=== PATIENT | male | born 1975 | race African-American/Black ===

== ENCOUNTER 2022-01-02 00:53 | Emergency (ER) | payer MEDICAID ==
[~2022-01-02] VITALS: Ht 165.1 cm; Wt 79.4 kg
[2022-01-02 01:04] VITALS: BP 113/69
--- NOTE | 2022-01-02 01:10 | NUR ---
TO LOBBY FOLLOWING TRIAGE
--- NOTE | 2022-01-02 01:44 | NUR ---
Patient taken to bed 4.
--- NOTE | 2022-01-02 01:48 | NUR ---
Dr. Alejandra examining patient.
[2022-01-02] MEDS ORDERED: MORPHINE SULFATE 4 MG/ML SYR IM ONE (01:50)
[2022-01-02] MEDS ORDERED: NITROGLYCERIN 0.4 MG TAB SL ONE ×3 (01:50→01:54)
[2022-01-02] MEDS ORDERED: MORPHINE SULFATE 4 MG/ML SYR ONE (01:53)
[2022-01-02] MEDS ORDERED: ASPIRIN 325 MG TAB PO ONE (01:55)
[2022-01-02] MEDS ORDERED: MORPHINE SULFATE 4 MG/ML SYR IVP ONE (02:00)
--- NOTE | 2022-01-02 02:00 | NUR ---
46YR OLD MALE BIB SELF C/O CP/UPPER GASTRIC PAIN XTODAY. PT PRESENTED DIAPHORTIC AND HOLDING HIS CHEST. CP STARTED AT 8PM AFTER EATING DINNER. 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 EKG WAS OBTAINED AND GIVEN TO DR LY. PT DENIES SOB . CP IS A PRESSURE/HEAVYNESS FEELING. PT STATES PAIN STARTED ON WED AND RETURNED LAST NIGHT BUT PAIN WAS WORSE. DR LY AT BEDSIDE. NKDA NO HX
--- NOTE | 2022-01-02 02:10 | NUR ---
Spoke with Saundra from [facility] [place] , according to cardiology doctor, is not STEMI. [facility] [place] is not accepting patient.
[2022-01-02] MEDS ORDERED: NACL 0.9% 1,000 ML IV ONE (02:20)
[2022-01-02 02:24] LABS: BASOPHILS # (AUTO) 0.1 K/uL (0.00-0.22); BASOPHILS % (AUTO) 0.5 % (0.0-2.0); EOSINOPHILS # (AUTO) 0.1 K/uL (0-0.4); EOSINOPHILS % (AUTO) 0.7 % (0.0-4.0); HEMATOCRIT 44.6 % (36-52); HEMOGLOBIN 14.3 g/dL (12.0-18.0); LYMPHOCYTES # (AUTO) 1.8 K/uL (2.0-11.5); LYMPHOCYTES % (AUTO) 16.2 % (20.5-51.1); MEAN CORPUSCULAR HEMOGLOBIN 27 pg (27-31); MEAN CORPUSCULAR HGB CONC 32 g/dL (33-37); MEAN CORPUSCULAR VOLUME 83.3 fL (80-94); MONOCYTES # (AUTO) 0.6 K/uL (0.8-1.0); MONOCYTES % (AUTO) 5.1 % (1.7-9.3); NEUTROPHILS # (AUTO) 8.7 K/uL (1.8-7.7); NEUTROPHILS % (AUTO) 77.5 % (42.2-75.2); PLATELET COUNT (AUTO) 280 K/uL (140-450); RED BLOOD CELL COUNT(AUTO) 5.36 MIL/uL (4.20-6.10); RED CELL DISTRIBUTION WIDTH 13.2 % (11.6-13.7); WHITE BLOOD COUNT (AUTO) 11.2 K/uL (4.8-10.8)
[2022-01-02 02:33] LABS: ALBUMIN 4.3 g/dL (3.4-5.0); CARBON DIOXIDE 24.6 mmol/L (21-32); POTASSIUM 3.6 mmol/L (3.5-5.1); TOTAL BILIRUBIN 0.3 mg/dL (0.0-1.0)
[2022-01-02 02:38] LABS: LIPASE 91 U/L (73-393)
--- NOTE | 2022-01-02 03:51 | NUR ---
Assisted patient to restroom.
--- NOTE | 2022-01-02 05:07 | NUR ---
PT IS RESTING RESP EVEN AND UNLABORED. PAIN LEVEL IS 4/10. ON BEDSIDE CARIDAC MONITOR. SIDE RAILS UP X2 BED AT LOWEST POSITION
--- NOTE | 2022-01-02 05:25 | NUR ---
Ultrasound at bedside.
--- NOTE | 2022-01-02 05:45 | NUR ---
ULTRASOUND AT BEDSIDE
--- NOTE | 2022-01-02 06:01 | NUR ---
MED RECONCILE , COVID SWAB, AND PT BELONGINGS COMPLETED
[2022-01-02] MEDS ORDERED: OMEP40EC24 PO (07:19)
--- NOTE | 2022-01-02 07:38 | NUR ---
IV removed, catheter intact and site benign. Applied folded 4x4 gauze and tape to stop bleeding.
[2022-01-02 07:40] VITALS: BP 116/69
--- NOTE | 2022-01-02 07:40 | NUR ---
Patient discharged with v/s stable. Written and verbal after care instructions FOR ABDOMINAL PAIN given and explained. Patient alert, oriented and verbalized understanding of instructions. Ambulatory with steady gait. All questions addressed prior to discharge. ID band removed. Patient advised to follow up with PMD. Rx of PRILOSEC given. Opportunity to ask questions provided and answered.
--- NOTE | 2022-01-02 07:41 | NUR ---
Chart checked and completed. The patient's care was reviewed and supervised by Zena Mcgee RN.
== END 2022-01-02 07:40 | disposition home or self-care (01) ==
LOC: MED 00:53
DX: R10.13 Epigastric pain (principal); Z20.822 Contact with and (suspected) exposure to COVID-19; R07.9 Chest pain, unspecified
CPT/HCPCS: 36415; 71045; 71275; 74174; 76705; 80053; 83690; 83880; 84484; 85025; 87426; 93005; 96361; 96374; 99285; J2270; Q0092; Q9967; J7030

== ENCOUNTER 2022-02-19 03:25 | Emergency (ER) | payer MEDICAID, OTHER ==
[~2022-02-19] VITALS: Ht 177.8 cm; Wt 79.4 kg
[~2022-02-19 03:25] MED LIST: OMEP40EC24 PO
--- NOTE | 2022-02-19 03:43 | NUR ---
PT TAKEN TO BED 8
[2022-02-19 03:49] VITALS: BP 103/64
--- NOTE | 2022-02-19 03:52 | NUR ---
PT WHEEL CHAIR TO ED 8, REPORT GIVEN TO BERNARDINO ZAIDI
[2022-02-19] MEDS ORDERED: ONDANSETRON 4 MG/2 ML VIAL IVP ONE (03:55)
[2022-02-19] MEDS ORDERED: KETOROLAC 15 MG/ML VIAL IVP ONE (03:55)
[2022-02-19] MEDS ORDERED: MORPHINE SULFATE 4 MG/ML SYR IVP ONE (03:55)
--- NOTE | 2022-02-19 04:06 | NUR ---
Ultrasound at bedside.
--- NOTE | 2022-02-19 04:13 | NUR ---
BLOOD DRAWS DELIVERED TO COUNCIL ON AGING DIRECTOR
[2022-02-19 04:47] LABS: ALBUMIN 3.7 g/dL (3.4-5.0); ANION GAP 12.1 (8-16); CARBON DIOXIDE 27.2 mmol/L (21-32); POTASSIUM 3.3 mmol/L (3.5-5.1); TOTAL BILIRUBIN 0.2 mg/dL (0.0-1.0)
[2022-02-19 04:55] LABS: BASOPHILS % (AUTO) 0.2 % (0.0-2.0); EOSINOPHILS # (AUTO) 0.2 K/uL (0-0.4); EOSINOPHILS % (AUTO) 2.8 % (0.0-4.0); HEMOGLOBIN 13.3 g/dL (12.0-18.0); LYMPHOCYTES # (AUTO) 1.6 K/uL (2.0-11.5); LYMPHOCYTES % (AUTO) 19.2 % (20.5-51.1); MEAN CORPUSCULAR HEMOGLOBIN 27 pg (27-31); MEAN CORPUSCULAR HGB CONC 32 g/dL (33-37); MEAN CORPUSCULAR VOLUME 83.8 fL (80-94); MONOCYTES # (AUTO) 0.4 K/uL (0.8-1.0); NEUTROPHILS # (AUTO) 6.1 K/uL (1.8-7.7); NEUTROPHILS % (AUTO) 72.8 % (42.2-75.2); PLATELET COUNT (AUTO) 235 K/uL (140-450); RED CELL DISTRIBUTION WIDTH 13.5 % (11.6-13.7); WHITE BLOOD COUNT (AUTO) 8.3 K/uL (4.8-10.8)
--- NOTE | 2022-02-19 05:03 | NUR ---
warm blanket provided
[2022-02-19] MEDS ORDERED: FAMO-90 PO (05:28)
[2022-02-19] MEDS ORDERED: ALUMINUM HYD/MAG/SIMETHICONE 30 ML UDC PO ONE (05:30)
[2022-02-19 06:22] VITALS: BP 110/76
--- NOTE | 2022-02-19 06:25 | NUR ---
Patient discharged with v/s stable. Written and verbal after care instructions given and explained. Patient alert, oriented and verbalized understanding of instructions. Ambulatory with steady gait to home. All questions addressed prior to discharge. ID band removed. Patient advised to follow up with PMD. Rx of pepcid given. Patient educated on indication of medication including possible reaction and side effects. Opportunity to ask questions provided and answered.
== END 2022-02-19 06:24 | disposition home or self-care (01) ==
LOC: MED 03:25
DX: K80.20 Calculus of gallbladder without cholecystitis without obstruction (principal)
CPT/HCPCS: 36415; 76705; 80053; 81002; 83690; 85025; 96374; 96375; 99284; J1885; J2270; J2405; Q0092

== ENCOUNTER 2022-02-21 21:54 | Emergency (ER) | payer OTHER ==
[~2022-02-21] VITALS: Ht 162.6 cm; Wt 78.0 kg
[~2022-02-21 21:54] MED LIST changes: +FAMO-90 PO
[2022-02-21 22:21] VITALS: BP 101/62
--- NOTE | 2022-02-21 22:24 | NUR ---
PT TO BED 12
--- NOTE | 2022-02-21 22:45 | NUR ---
DR. ANDRADE AT BEDSIDE.
[2022-02-21] MEDS ORDERED: DICYCLOMINE HCL LIQUID 20 MG, ALUMINUM HYD/MAG/SIMETHICONE 30 ML, LIDOCAINE VISCOUS 2% ... PO ONE ×3 (22:55)
[2022-02-21] MEDS ORDERED: ONDANSETRON 4 MG/2 ML VIAL IVP ONE (22:55)
[2022-02-21] MEDS ORDERED: NACL 0.9% 1,000 ML IV ONE (22:55)
[2022-02-21] MEDS ORDERED: MORPHINE SULFATE 4 MG/ML SYR IVP ONE (22:55)
--- NOTE | 2022-02-21 23:00 | NUR ---
IV ESTABLISHED, WILL FOLLOW THROUGH WITH ORDERS. PT UPDATED ON POC WITH FULL RETURNED VERBAL UNDERSTANDING.
[2022-02-21 23:05] LABS: BASOPHILS # (AUTO) 0.1 K/uL (0.00-0.22); BASOPHILS % (AUTO) 0.7 % (0.0-2.0); EOSINOPHILS # (AUTO) 0.4 K/uL (0-0.4); EOSINOPHILS % (AUTO) 4.6 % (0.0-4.0); HEMATOCRIT 43.2 % (36-52); HEMOGLOBIN 14.1 g/dL (12.0-18.0); LYMPHOCYTES # (AUTO) 2.8 K/uL (2.0-11.5); LYMPHOCYTES % (AUTO) 34.1 % (20.5-51.1); MEAN CORPUSCULAR HEMOGLOBIN 27 pg (27-31); MEAN CORPUSCULAR HGB CONC 33 g/dL (33-37); MEAN CORPUSCULAR VOLUME 83.7 fL (80-94); MONOCYTES # (AUTO) 0.6 K/uL (0.8-1.0); MONOCYTES % (AUTO) 7.2 % (1.7-9.3); NEUTROPHILS # (AUTO) 4.4 K/uL (1.8-7.7); NEUTROPHILS % (AUTO) 53.4 % (42.2-75.2); PLATELET COUNT (AUTO) 266 K/uL (140-450); RED BLOOD CELL COUNT(AUTO) 5.17 MIL/uL (4.20-6.10); RED CELL DISTRIBUTION WIDTH 13.4 % (11.6-13.7); WHITE BLOOD COUNT (AUTO) 8.2 K/uL (4.8-10.8)
[2022-02-21] MEDS ORDERED: ALUMINUM HYD/MAG/SIMETHICONE 30 ML UDC ONE (23:09)
[2022-02-21] MEDS ORDERED: DICYCLOMINE HCL LIQUID 10 MG/5 ML UDC ONE (23:09)
--- NOTE | 2022-02-21 23:25 | NUR ---
PT C/O NO RELIEF AND SEVERE 10/10 PAIN. PT WAS MEDICATED APPROX [address] ANDRADE AWARE[address] AWAITING LABS BEFORE FURTHER MEDICATION ORDER. PT UPDATED.
[2022-02-21 23:47] LABS: ALBUMIN 3.7 g/dL (3.4-5.0); CARBON DIOXIDE 27.5 mmol/L (21-32); CREATININE 1.1 mg/dL (0.6-1.3); TOTAL BILIRUBIN 0.2 mg/dL (0.0-1.0)
[2022-02-21 23:48] LABS: ANION GAP 12.1 (8-16); POTASSIUM 3.6 mmol/L (3.5-5.1)
[2022-02-21] MEDS ORDERED: KETOROLAC 30 MG/ML VIAL IVP ONE (23:50)
[2022-02-21] MEDS ORDERED: HYDROmorphone PFS 2 MG/ML SYR IVP ONE (23:55)
--- NOTE | 2022-02-22 00:26 | NUR ---
PT MEDICATED AT THIS TIME FOR PAIN Addendum: 02/22/22 at 0312 by [id number] PT PLACED ON MONITOR AT THIS TIME.
--- NOTE | 2022-02-22 00:35 | NUR ---
PT RESTING, DENIES ANY PAIN OR NEEDS AT THIS TIME. WILL CONTINUE TO MONITOR.
[2022-02-22] MEDS ORDERED: MAG-27 PO (01:05)
[2022-02-22] MEDS ORDERED: ACET-8386 PO (01:05)
--- NOTE | 2022-02-22 01:30 | NUR ---
PT RESTING, VSS. NO S/S OF DISTRESS NOTED. PT DENIES ANY NEEDS OR PAIN AT THIS TIME.
[2022-02-22 02:41] VITALS: BP 129/70
--- NOTE | 2022-02-22 02:41 | NUR ---
Patient discharged with v/s stable. Written and verbal after care instructions given and explained. Patient alert, oriented and verbalized understanding of instructions. Ambulatory with steady gait. All questions addressed prior to discharge. ID band removed. Patient advised to follow up with PMD. Rx of SERG MATUTE given. Patient educated on indication of medication including possible reaction and side effects. Opportunity to ask questions provided and answered.
== END 2022-02-22 02:41 | disposition home or self-care (01) ==
LOC: MED 21:54
DX: K80.50 Calculus of bile duct without cholangitis or cholecystitis without obstruction (principal)
CPT/HCPCS: 36415; 80053; 81002; 83690; 85025; 96361; 96374; 96375; 99284; J1170; J1885; J2270; J2405; J7030

== ENCOUNTER 2022-02-24 23:20 | Emergency (ER) | payer OTHER ==
[~2022-02-24] VITALS: Ht 165.1 cm; Wt 79.4 kg
[~2022-02-24 23:20] MED LIST changes: +ACET-8386 PO; +MAG-27 PO
[2022-02-25 01:09] VITALS: BP 110/70
--- NOTE | 2022-02-25 01:45 | NUR ---
PT AMBULATED TO BED #8
[2022-02-25 02:14] LABS: BASOPHILS # (AUTO) 0.1 K/uL (0.00-0.22); BASOPHILS % (AUTO) 0.5 % (0.0-2.0); EOSINOPHILS # (AUTO) 0.4 K/uL (0-0.4); EOSINOPHILS % (AUTO) 3.3 % (0.0-4.0); HEMATOCRIT 42.2 % (36-52); HEMOGLOBIN 13.8 g/dL (12.0-18.0); LYMPHOCYTES # (AUTO) 1.4 K/uL (2.0-11.5); LYMPHOCYTES % (AUTO) 12.8 % (20.5-51.1); MEAN CORPUSCULAR HEMOGLOBIN 27 pg (27-31); MEAN CORPUSCULAR HGB CONC 33 g/dL (33-37); MEAN CORPUSCULAR VOLUME 83.5 fL (80-94); MONOCYTES # (AUTO) 0.7 K/uL (0.8-1.0); MONOCYTES % (AUTO) 6.4 % (1.7-9.3); NEUTROPHILS # (AUTO) 8.3 K/uL (1.8-7.7); PLATELET COUNT (AUTO) 260 K/uL (140-450); RED BLOOD CELL COUNT(AUTO) 5.06 MIL/uL (4.20-6.10); RED CELL DISTRIBUTION WIDTH 13.4 % (11.6-13.7); WHITE BLOOD COUNT (AUTO) 10.7 K/uL (4.8-10.8)
[2022-02-25 02:31] LABS: ALBUMIN 3.7 g/dL (3.4-5.0); ANION GAP 8.9 (8-16); CARBON DIOXIDE 29.8 mmol/L (21-32); CREATININE 0.9 mg/dL (0.6-1.3); POTASSIUM 3.7 mmol/L (3.5-5.1); TOTAL BILIRUBIN 0.2 mg/dL (0.0-1.0)
[2022-02-25] MEDS ORDERED: HYDROcodone/APAP 5/325 MG 1 TAB TAB PO ONE (02:50)
[2022-02-25] MEDS ORDERED: KETOROLAC 15 MG/ML VIAL IM ONE (02:55)
[2022-02-25 05:16] VITALS: BP 118/74
== END 2022-02-25 05:10 | disposition home or self-care (01) ==
LOC: MED 23:20
DX: K80.50 Calculus of bile duct without cholangitis or cholecystitis without obstruction (principal); Z79.899 Other long term (current) drug therapy
CPT/HCPCS: 36415; 80053; 83690; 85025; 96372; 99283; J1885